=== PATIENT | male | born 1995 | race Caucasian/White ===

== ENCOUNTER 2018-06-19 07:02 | Emergency (ER) | payer MEDICAID ==
[~2018-06-19] VITALS: Ht 188 cm; Wt 79.0 kg
[~2018-06-19 07:02] MED LIST: ALBU6.7H INH; AZIT250T PO; IBUP-2264 PO; QUET-1 PO
[2018-06-19 07:06] VITALS: BP 142/69
[2018-06-19] MEDS ORDERED: ketorolac trometh inj. 60 MG/2 ML VIAL IM ONE (07:50)
[2018-06-19] MEDS ORDERED: amoxicillin 250mg capsule PO ONE (07:50)
[2018-06-19] MEDS ORDERED: acetaminophen 325mg tablet PO ONE (07:50)
[2018-06-19] MEDS ORDERED: AMOX500C2 PO (07:51)
[2018-06-19] MEDS ORDERED: IBUP-1984 PO (08:28)
== END 2018-06-19 08:35 | disposition home or self-care (01) ==
LOC: ER 07:03
DX: K08.89 Other specified disorders of teeth and supporting structures (principal); F31.9 Bipolar disorder, unspecified; F12.90 Cannabis use, unspecified, uncomplicated; Z79.2 Long term (current) use of antibiotics; Z79.899 Other long term (current) drug therapy
CPT/HCPCS: 96372; 99283; J1885

== ENCOUNTER 2021-02-13 01:53 | Emergency (ER) | payer MEDICAID ==
[~2021-02-13] VITALS: Ht 182.9 cm; Wt 75.0 kg
[2021-02-13 02:01] VITALS: BP 169/101
[2021-02-13] MEDS ORDERED: bacitracin 15gm ointment TP ONE (02:10)
== END 2021-02-13 02:23 | disposition home or self-care (01) ==
LOC: ER 01:54
DX: L02.511 Cutaneous abscess of right hand (principal); Z48.02 Encounter for removal of sutures; F12.90 Cannabis use, unspecified, uncomplicated; Z79.899 Other long term (current) drug therapy
CPT/HCPCS: 99281